=== PATIENT | male | born 1990 | race Caucasian/White ===

== ENCOUNTER 2021-09-25 09:19 | Emergency (ER) | payer MEDICAID ==
[~2021-09-25] VITALS: Ht 175.3 cm; Wt 95.0 kg
[~2021-09-25 09:19] MED LIST: AMOX-424 MT; SULF1TAB48 MT
[2021-09-25] MEDS ORDERED: AMOX-424 MT (10:21)
[2021-09-25 10:29] VITALS: BP 146/90
== END 2021-09-25 10:31 | disposition home or self-care (01) ==
LOC: ER 09:50
DX: L03.211 Cellulitis of face (principal); I10 Essential (primary) hypertension
CPT/HCPCS: 99281; 99283